=== PATIENT | female | born 1965 | race Caucasian/White ===

== ENCOUNTER 2018-02-06 16:54 | Emergency (ER) | END 2018-02-07 00:17 | disposition home or self-care (01) ==

== ENCOUNTER 2018-02-14 16:11 | Inpatient (IN) | END 2018-02-15 18:48 | DRG 313 ==

== ENCOUNTER 2018-02-17 06:36 | Emergency (ER) | END 2018-02-17 09:30 | disposition home or self-care (01) ==

== ENCOUNTER 2018-05-06 14:39 | Emergency (ER) | END 2018-05-06 15:20 | disposition home or self-care (01) ==